=== PATIENT | male | born 2000 | race Caucasian/White ===

== ENCOUNTER 2023-07-22 17:45 | Emergency (ER) | payer BC ==
[~2023-07-22] VITALS: Ht 165.1 cm; Wt 77.3 kg
[~2023-07-22 17:45] MED LIST: ZOFRAN ODT4 MG PO
[2023-07-22 17:52] VITALS: TEMP 97.8
[2023-07-22] MEDS ORDERED: NS 1,000 ML IV ONE (18:00)
[2023-07-22] MEDS ORDERED: Ondansetron 4 MG/2 ML VIAL IV ONE (18:00)
[2023-07-22 18:34] LABS: BASO # 0.1 K/mm3 (0.0-0.2); BASO % 0.4 % (0.0-2.0); EOS # 0.1 K/mm3 (0.0-0.7); EOS % 0.3 % (0.0-4.0); HEMATOCRIT 50.1 % (42.0-52.0); HEMOGLOBIN 17.3 g/dl (13.5-18.0); LYMPH # 1.3 K/mm3 (1.2-3.4); LYMPH % 8.4 % (20.0-51.0); MEAN CELL VOLUME 86 fl (80.0-100.0); MEAN CORPUSCULAR HEMOGLOBIN 30 pg (27-31); MEAN CORPUSCULAR HGB CONC 35 g/dl (33.0-37.0); MEAN PLATELET VOLUME 8.1 fl (7.4-10.4); MONO # 0.4 K/mm3 (0.1-0.6); MONO % 2.5 % (1.7-9.3); PLATELET COUNT 265 K/mm3 (130-400); RED BLOOD COUNT 5.81 M/mm3 (4.20-5.60); REDCELL DISTRIBUTION WIDTH-CV 12.1 % (11.5-14.5)
[2023-07-22 18:58] LABS: ALBUMIN 4.6 g/dL (3.5-5.0); BILIRUBIN,TOTAL 0.5 mg/dL (0.2-1.2); C-REACTIVE PROTEIN 0.35 mg/dL (0.00-0.50); CALCIUM 9.8 mg/dL (8.4-10.2); CREATININE, serum 0.87 mg/dL (0.72-1.25); POTASSIUM 4.1 mEq/L (3.5-4.5); TOTAL PROTEIN 8.4 g/dl (6.2-8.1)
[2023-07-22] MEDS ORDERED: Iohexol 300 - 100 ML VIAL IV ONE (19:08)
[2023-07-22] MEDS ORDERED: NS 100 ML IV SCH (19:09)
[2023-07-22 19:38] LABS: COLLECTION METHOD CLEAN CATCH
[2023-07-22] MEDS ORDERED: Famotidine 20 MG TAB PO ONE (19:45)
[2023-07-22] MEDS ORDERED: Mag/Al Hydrox/Simeth Susp 30 ML CUP PO ONE (19:45)
[2023-07-22 19:49] LABS: PH 6.5 (5.0-8.5); URINE APPEARANCE CLEAR (CLEAR/HAZY); URINE BLOOD NEGATIVE (NEGATIVE); URINE COLOR YELLOW (YELLOW); URINE GLUCOSE NEGATIVE (NEGATIVE); URINE KETONE 3+ (NEGATIVE); URINE NITRATE NEGATIVE (NEGATIVE); URINE PROTEIN(semi-quant) TRACE (NEGATIVE)
[2023-07-22] MEDS ORDERED: PROTONIX 40MG T40 MG PO (20:55)
[2023-07-22] MEDS ORDERED: Home Ondansetron ODT 4 MG #2 ODT/PACK PO ONE (21:00)
[2023-07-22 21:09] VITALS: BP 120/81; PULSE 96
== END 2023-07-22 21:19 | disposition home or self-care (01) ==
LOC: COL.ER 17:45
PROVIDERS: Nurse Practitioner Primary Care
DX: K29.70 Gastritis, unspecified, without bleeding (principal); F17.290 Nicotine dependence, other tobacco product, uncomplicated
CPT/HCPCS: J2405; J7030; Q9967